=== PATIENT | female | born 1935 | race African-American/Black ===

== ENCOUNTER 2025-03-30 19:10 | Inpatient (IN) | payer OTHER ==
[2025-03-30] MEDS ORDERED: ACETAMINOPHEN INJECTION 100 ML ONE (20:24)
[2025-03-30] MEDS: ACETAMINOPHEN 1000 MG/100 ML BAG IVPB ONE (20:43)
[2025-03-30 20:49] LABS: ABSOLUTE IMMATURE GRANULOCYTES 0.01 x10^3/uL (0.0-0.031); BASOPHILS # 0.02 x10^3/uL (0.01-0.08); EOSINOPHIL % 1.4 % (0.7-5.8); EOSINOPHILS # 0.07 x10^3/uL (0.04-0.36); MCHC 31.7 g/dl (32.2-35.5); MEAN CELL VOLUME 70.2 fl (79.4-94.8); MEAN PLT VOLUME 9.5 fl (9.4-12.3); MONOCYTE # 0.48 x10^3/uL (0.24-0.86); MONOCYTE % 9.8 % (4.7-12.5); RDW 15.5 % (12.5-17.0)
[2025-03-30 21:21] LABS: CO2 28.0 mmol/L (21-32); GLUCOSE,RANDOM 103.0 mg/dL (74-106)
[2025-03-30 21:24] LABS: CREATININE 1.1 mg/dL (0.55-1.3); SGOT/AST 22.0 U/L (15-37); SGPT/ALT 21.0 U/L (13-61)
[2025-03-30 21:26] LABS: TOT PROT 6.7 g/dl (6.4-8.2)
[2025-03-30 21:27] LABS: ALK PHOS 73.0 U/L (45-117)
[2025-03-31 04:00] VITALS: BMI 29.8
[2025-03-31] MEDS: ACETAMINOPHEN 1000 MG/100 ML BAG IVPB ONE (05:03)
[2025-03-31 09:29] LABS: ABSOLUTE IMMATURE GRANULOCYTES 0.01 x10^3/uL (0.0-0.031); BASOPHILS # 0.02 x10^3/uL (0.01-0.08); EOSINOPHIL % 2.1 % (0.7-5.8); EOSINOPHILS # 0.11 x10^3/uL (0.04-0.36); MCHC 30.9 g/dl (32.2-35.5); MEAN CELL VOLUME 70.1 fl (79.4-94.8); MEAN PLT VOLUME 10.2 fl (9.4-12.3); MONOCYTE # 0.52 x10^3/uL (0.24-0.86); MONOCYTE % 10.0 % (4.7-12.5); RDW 15.3 % (12.5-17.0)
[2025-03-31 10:09] LABS: CO2 24.0 mmol/L (21-32); GLUCOSE,RANDOM 85.0 mg/dL (74-106)
[2025-03-31 10:12] LABS: CREATININE 0.9 mg/dL (0.55-1.3)
[2025-03-31] MEDS: HYDROCHLOROTHIAZIDE 25 MG TABLET (FP) PO SCH (10:12)
[2025-03-31] MEDS: PANTOPRAZOLE 40 MG TABLET PO SCH (10:12)
[2025-03-31] MEDS: LOSARTAN POTASSIUM 50 MG TABLET PO SCH (10:12)
[2025-03-31] MEDS: GABAPENTIN 100 MG CAPSULE PO SCH (10:12)
[2025-03-31] MEDS: amLODIPine BESYLATE 10 MG TABLET (FP) PO SCH (10:12)
[2025-03-31] MEDS: GENTAMICIN SO4 0.1% TOP CREAM 15 GM/TUBE TP SCH (11:21)
[2025-03-31] MEDS: ACETAMINOPHEN 1000 MG/100 ML BAG IVPB PRN (18:14)
[2025-03-31] MEDS: DOCUSATE SODIUM 100 MG CAPSULE (FP) PO SCH (21:22)
[2025-03-31] MEDS: ATORVASTATIN CA 20 MG TABLET (FP) PO SCH (21:23)
[2025-04-01] MEDS: LOSARTAN POTASSIUM 50 MG TABLET PO SCH (09:34)
[2025-04-01] MEDS ORDERED: POLYETHYLENE GLYCOL (HEALTHYLAX) 3350 17 GM PACKET PO PRN (10:38)
[2025-04-01] MEDS: ACETAMINOPHEN 325 MG TABLET (FP) PO PRN (12:30)
[2025-04-03 08:33] LABS: ABSOLUTE IMMATURE GRANULOCYTES 0.01 x10^3/uL (0.0-0.031); BASOPHILS # 0.04 x10^3/uL (0.01-0.08); EOSINOPHIL % 2.6 % (0.7-5.8); EOSINOPHILS # 0.14 x10^3/uL (0.04-0.36); MCHC 31.9 g/dl (32.2-35.5); MEAN CELL VOLUME 69.9 fl (79.4-94.8); MEAN PLT VOLUME 10.3 fl (9.4-12.3); MONOCYTE # 0.60 x10^3/uL (0.24-0.86); MONOCYTE % 11.3 % (4.7-12.5); RDW 15.5 % (12.5-17.0)
[2025-04-03 09:20] LABS: CO2 28.0 mmol/L (21-32); GLUCOSE,RANDOM 84.0 mg/dL (74-106)
[2025-04-03 09:23] LABS: CREATININE 1.0 mg/dL (0.55-1.3); SGOT/AST 25.0 U/L (15-37); SGPT/ALT 25.0 U/L (13-61)
[2025-04-03 09:25] LABS: TOT PROT 6.4 g/dl (6.4-8.2)
[2025-04-03 09:29] LABS: ALK PHOS 68.0 U/L (45-117)
[2025-04-03 10:40] LABS: ERYTHROCYTE SEDIMENTATION RATE 8 mm/hr (0-30)
[2025-04-03] MEDS ORDERED: VANCOMYCIN 1,000 MG VIAL (RESTRICTED TO ID ONLY) ONE (13:21)
[2025-04-03] MEDS ORDERED: LIDOCAINE HCL 2% (20ML MULTI-DOSE VIAL) ONE (13:21)
[2025-04-03] MEDS: LIDOCAINE HCL 2% (50ML VIAL) NR ONE (16:15)
[2025-04-03] MEDS: BUPIVACAINE HCL/PF 0.5% (5 MG/ML) 30 ML VIAL IJ ONE (16:41)
[2025-04-03] MEDS ORDERED: POLYETHYLENE GLYCOL (HEALTHYLAX) 3350 17 GM PACKET PO PRN (17:00)
[2025-04-03] MEDS: CEFAZOLIN SODIUM 2 GM VIAL IVPUSH ONE ×2 (17:25→18:23)
[2025-04-03] MEDS: DOCUSATE SODIUM 100 MG CAPSULE (FP) PO SCH (21:41)
[2025-04-03] MEDS: ATORVASTATIN CA 20 MG TABLET (FP) PO SCH (21:41)
[2025-04-03] MEDS: GABAPENTIN 100 MG CAPSULE PO SCH (21:41)
[2025-04-03] MEDS: GENTAMICIN SO4 0.1% TOP CREAM 15 GM/TUBE TP SCH (21:42)
[2025-04-04] MEDS: LOSARTAN POTASSIUM 50 MG TABLET PO SCH (09:41)
[2025-04-04] MEDS: PANTOPRAZOLE 40 MG TABLET PO SCH (09:42)
[2025-04-04] MEDS: HYDROCHLOROTHIAZIDE 25 MG TABLET (FP) PO SCH (09:42)
[2025-04-04] MEDS: GENTAMICIN SO4 0.1% TOP CREAM 15 GM/TUBE TP SCH (09:43)
[2025-04-04] MEDS: ACETAMINOPHEN 325 MG TABLET (FP) PO PRN (09:46)
[2025-04-04] MEDS: CEFTRIAXONE 2 GM in DEXTROSE 5%-WATER 100 ML IVPB SCH (13:30)
[2025-04-04] MEDS: GABAPENTIN 100 MG CAPSULE PO SCH (16:56)
[2025-04-05] MEDS: ENOXAPARIN NA (PORCINE) 40 MG/0.4 ML DISP.SYRIN SQ SCH (10:35)
[2025-04-05] MEDS: GABAPENTIN 300 MG CAPSULE PO SCH (13:38)
[2025-04-06 12:10] LABS: ABSOLUTE IMMATURE GRANULOCYTES 0.02 x10^3/uL (0.0-0.031); BASOPHILS # 0.03 x10^3/uL (0.01-0.08); EOSINOPHIL % 1.4 % (0.7-5.8); EOSINOPHILS # 0.08 x10^3/uL (0.04-0.36); MCHC 30.4 g/dl (32.2-35.5); MEAN CELL VOLUME 72.9 fl (79.4-94.8); MEAN PLT VOLUME 10.4 fl (9.4-12.3); MONOCYTE # 0.49 x10^3/uL (0.24-0.86); MONOCYTE % 8.8 % (4.7-12.5); RDW 15.9 % (12.5-17.0)
[2025-04-06 12:38] LABS: GLUCOSE,RANDOM 119.0 mg/dL (74-106)
[2025-04-06 12:39] LABS: CO2 30.0 mmol/L (21-32)
[2025-04-06 12:40] LABS: CREATININE 1.0 mg/dL (0.55-1.3)
[2025-04-06 12:41] LABS: SGOT/AST 17.0 U/L (15-37); SGPT/ALT 19.0 U/L (13-61)
[2025-04-06 12:42] LABS: TOT PROT 6.3 g/dl (6.4-8.2)
[2025-04-06 12:44] LABS: ALK PHOS 76.0 U/L (45-117)
[2025-04-06] MEDS: LACTOBACILLUS ACIDOPHILUS 1 TABLET PO ONE (23:04)
[2025-04-06] MEDS: ONDANSETRON 4 MG/2 ML VIAL IVPUSH ONE (23:04)
[2025-04-08] MEDS ORDERED: IBUPROFEN 400 MG TABLET (FP) PO PRN (13:29)
[2025-04-09] MEDS: DOXYCYCLINE HYCLATE 100 MG TABLET PO SCH (17:43)
[2025-04-09 21:27] VITALS: RESP 18
[2025-04-11 09:36] VITALS: BP 114/88; PULSE 64; TEMP 98.4
== END 2025-04-11 15:15 | DRG 572 ==
LOC: JER 19:10 → JERBED 03-31 00:40 → INTOOBSV 03-31 00:40 → J5S 03-31 03:41 → OBSVTOIN 04-03 10:35
PROVIDERS: ADMIT Internal Medicine; ATTEND Internal Medicine
PROC: 0QBQ0ZX Excision of Right Toe Phalanx, Open Approach, Diagnostic (ICD-10-PCS; 2025-04-03)
PROC: 0JBQ0ZZ Excision of Right Foot Subcutaneous Tissue and Fascia, Open Approach (ICD-10-PCS; principal; 2025-04-03 14:30)
DX: L97.519 Non-pressure chronic ulcer of other part of right foot with unspecified severity (principal); I10 Essential (primary) hypertension; E78.5 Hyperlipidemia, unspecified; B35.1 Tinea unguium
CPT/HCPCS: 36415; 73630-TC-RT-FY; 73721-RT-TC; 80048; 80053; 83735; 84550; 85025; 85651; 86140; 87070; 87075; 87205; 88305-TC; 88311-TC; 93005; 93010; 93922; 93926-TC; 94760; 97116-GP; 97161-GP; 99285-25; G0378